=== PATIENT | female | born 1990 ===

== ENCOUNTER 2017-03-23 16:51 | Emergency (ER) | payer MEDICARE, OTHER ==
[2017-03-23 17:04] VITALS: BP 118/87; PULSE 78; RESP 18; TEMP 98.8; O2SAT 98
--- NOTE | 2017-03-23 18:26 | ED PDOC ---
HPI: Female Pain Time Seen by Provider: 03/23/17 17:51 Chief Complaint (Nursing): Female Genitourinary History Per: Patient Additional Complaint(s): 27 yo female presents to ED with complaint sof lower abdominal cramping and vaginal bleeding. Pt reports that her period started don Thursday; however, stopped, and then resumed on Thursday with heavy cramping. Pt concerned she might be . Pt has not done a test. Past Medical History Reviewed: Nursing Documentation, Vital Signs Vital Signs: Last Vital Signs Temp 98.8 F 03/23/17 17:02 Pulse 78 03/23/17 17:02 Resp 18 03/23/17 17:02 BP 118/87 03/23/17 17:02 Pulse Ox 98 03/23/17 17:02 - Medical History PMH: No Chronic Diseases - Surgical History Surgical History: No Surg Hx - Family History Family History: States: Unknown Family Hx - Living Arrangements Living Arrangements: With Family - Social History Current smoker - smoking cessation education provided: No Alcohol: None Drugs: Denies - Home Medications Home Medications: Ambulatory Orders Medication Instructions Recorded Multivitamin and [id number] 1 tab PO DAILY #100 tab 08/28/14 [] Ondansetron [Zofran] 4 mg PO Q8H PRN #30 tab 08/28/14 Oxymetazoline 0.05% [Afrin 0.05%] 2 spr NS Q12H #1 bottle 11/11/15 Cyclobenzaprine [Cyclobenzaprine 10 mg PO Q8 PRN #12 tab 04/12/16 HCl] Ibuprofen [Motrin] 600 mg PO TID PRN #30 tab 04/12/16 Cephalexin [cephalexin] 500 mg PO Q6 7 Days 07/25/16 DiphenhydrAMINE [Benadryl] 25 mg PO Q8H PRN 5 Days 07/25/16 predniSONE [predniSONE Tab] 20 mg PO BID 5 Days 07/25/16 Cephalexin [Keflex] 500 mg PO BID #14 cap 11/28/16 Phenazopyridine HCl [Pyridium] 100 mg PO TID #6 tab 03/23/17 Sulfamethoxazole/Trimethoprim 1 tab PO BID 14 Days 03/23/17 [Bactrim DS 800 mg-160 mg] - Allergies Allergies/Adverse Reactions: Allergies Allergy/AdvReac Type Severity Reaction Status Date / Time No Known Allergies Allergy Verified 03/23/17 17:02 Review of Systems ROS Statement: Except As Marked, All Systems Reviewed And Found Negative Gastrointestinal: Positive for: Abdominal Pain Genitourinary Female: Positive for: Vaginal Bleeding Physical Exam - Reviewed Nursing Documentation Reviewed: Yes Vital Signs Reviewed: Yes - Physical Exam Appears: Positive for: Well, Non-toxic, No Acute Distress Head Exam: Positive for: ATRAUMATIC, NORMAL INSPECTION, NORMOCEPHALIC Skin: Positive for: Normal Color, Warm, DRY Eye Exam: Positive for: EOMI, Normal appearance, PERRL ENT: Positive for: Normal ENT Inspection Neck: Positive for: Normal, Painless ROM Cardiovascular/Chest: Positive for: Regular Rate, Rhythm Respiratory: Positive for: CNT, Normal Breath Sounds Gastrointestinal/Abdominal: Positive for: Normal Exam, Bowel Sounds, Soft Back: Positive for: Normal Inspection Extremity: Positive for: Normal ROM Neurologic/Psych: Positive for: Alert, Oriented - Laboratory Results Result Diagrams: 03/23/17 18:05 - ECG O2 Sat by Pulse Oximetry: 98 Medical Decision Making Medical Decision Making: preg (-) Beta (-) Large blood and leuks on UA Pt started on Bactrim for UTI Instructed on results and demonstrated full understanding Disposition - Clinical Impression Clinical Impression: Urinary tract infection - Patient ED Disposition Is Patient to be Admitted: No - Disposition Disposition: Routine/Home Disposition Time: 19:41 Condition: STABLE Prescriptions: Phenazopyridine HCl [Pyridium] 100 mg PO TID #6 tab Sulfamethoxazole/Trimethoprim [Bactrim DS 800 mg-160 mg] 1 tab PO BID 14 Days Instructions: Urinary Tract Infection in Women (GEN) - POA Present On Arrival: None
[2017-03-23 18:47] LABS: BASO # 0.1 K/uL (0.0-0.2); BASO % 0.7 % (0.0-2.0); EOS % 0.3 % (0.0-4.0); HEMATOCRIT 39.5 % (34.0-47.0); LYMPH # 2.1 K/uL (1.0-4.3); LYMPH % 21.9 % (20.0-40.0); MEAN CELL VOLUME 90.6 fl (81.0-99.0); MEAN CORPUSCULAR HEMOGLOBIN 30.2 pg (27.0-31.0); MEAN CORPUSCULAR HGB CONC 33.3 g/dL (33.0-37.0); MEAN PLATELET VOLUME 9.1 fl (7.2-11.7); MONO # 0.7 K/uL (0.0-0.8); MONO % 7.6 % (0.0-10.0); NEUT # 6.5 K/uL (1.8-7.0); NEUT % 69.5 % (50.0-75.0); RED CELL DISTRIBUTION WIDTH 13.6 % (11.5-14.5); WHITE BLOOD COUNT 9.4 K/uL (4.8-10.8)
[2017-03-23 19:26] LABS: RBC URINE 33 /hpf (0-3); URINE BACTERIA OCC (<OCC); URINE BILIRUBIN NEGATIVE (NEGATIVE); URINE BLOOD LARGE (NEGATIVE); URINE COLOR AMBER (YELLOW); URINE GLUCOSE (UA) NEG (Normal); URINE KETONE NEGATIVE (NEGATIVE); URINE LEUKOCYTE ESTERASE MOD Leu/uL (Negative); URINE PROTEIN 100 mg/dL (NEGATIVE); URINE UROBILINOGEN 0.2-1.0 mg/dL (0.2-1.0); WBC URINE 65 /hpf (0-5)
== END 2017-03-23 19:42 | disposition home or self-care (01) ==
LOC: H.ER 16:51
DX: N39.0 Urinary tract infection, site not specified (principal); R10.9 Unspecified abdominal pain
CPT/HCPCS: 81003; 81025; 84702; 85025; 96372; 99283; J1885

== ENCOUNTER 2017-07-13 14:07 | Emergency (ER) | payer MEDICARE, OTHER ==
[2017-07-13 14:24] VITALS: BP 99/69; PULSE 82; RESP 16; TEMP 98.2; O2SAT 99
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
--- NOTE | 2017-07-13 15:37 | RAD ---
PROCEDURE: Left Ankle Radiographs. HISTORY: trauma COMPARISON: Comparison made with concurrent radiographs of the left foot 07/13/2017 FINDINGS: BONES: Normal. No fracture. JOINTS: Ankle mortise maintained. The slight spurring seen along the at inferior tip of the medial malleolus and possibly inferior tip of the lateral malleolus SOFT TISSUES: Questionable minimal lateral soft tissue swelling OTHER FINDINGS: None. IMPRESSION: Normal left ankle radiographNo evidence of acute displaced fracture nor dislocation. Mild tibiotalar DJD. . If symptoms persist or occult fracture suspected clinically recommend repeat radiographs in 5-10 days as most fractures should become radiographically evident in this timeframe.s.
--- NOTE | 2017-07-13 15:41 | RAD ---
PROCEDURE: Left Foot Radiographs. HISTORY: trauma COMPARISON: Correlation made with concurrent radiographs of the left ankle FINDINGS: BONES: No evidence of acute displaced fracture nor dislocation. Tiny posterior calcaneal enthesophyte present. JOINTS: Normal. SOFT TISSUES: Normal. OTHER FINDINGS: None. IMPRESSION: No evidence of acute displaced fracture or dislocation. If symptoms persist or occult fracture suspected clinically recommend repeat radiographs in 5-10 days as most fractures should become radiographically evident in this timeframe. S.
== END 2017-07-13 16:14 | disposition home or self-care (01) ==
LOC: H.ER 14:07
DX: S90.122A Contusion of left lesser toe(s) without damage to nail, initial encounter (principal); S90.511A Abrasion, right ankle, initial encounter; W19.XXXA Unspecified fall, initial encounter; Y92.89 Other specified places as the place of occurrence of the external cause

== ENCOUNTER 2017-12-25 00:28 | Emergency (ER) | payer MEDICARE, OTHER ==
[2017-12-25 00:49] VITALS: TEMP 98.6
[2017-12-25 01:38] LABS: BARBITURATES, UR NEGATIVE (NEGATIVE); BENZODIAZEPINES, UR NEGATIVE (NEGATIVE); OPIATES, UR NEGATIVE (NEGATIVE); PHENCYCLIDINE, UR NEGATIVE (NEGATIVE)
[2017-12-25 02:08] VITALS: PULSE 88; RESP 15; O2SAT 96
[2017-12-25 02:26] VITALS: BP 136/77
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
== END 2017-12-25 03:30 | disposition home or self-care (01) ==
LOC: H.ER 00:28
DX: F41.9 Anxiety disorder, unspecified (principal)
CPT/HCPCS: 99284; G0480

== ENCOUNTER 2018-01-04 03:59 | Emergency (ER) | payer MEDICARE, OTHER ==
[2018-01-04 04:25] VITALS: BP 130/83; PULSE 73; RESP 16; TEMP 97.7; O2SAT 99
--- NOTE | 2018-01-04 04:43 | ED PDOC ---
HPI: General Adult Time Seen by Provider: 01/04/18 04:19 Chief Complaint (Nursing): Anxiety History Per: Patient Additional Complaint(s): Pt. states earlier this evening she had a cigarette and shortly after she began to feel anxious. Describes feeling as having chest tightness and palpitations. States she took a cold shower and felt better afterwards but wanted to get checked out regardless. States she's same symptoms in the past which was attributed anxiety and she was placed on meds. Pt. states she does not like to be on medications as she does not like how it makes her feel. Currently without any symptoms. Denies SI/HI, hallucinations, hemoptysis, hx of DVT or PE, leg pain. Past Medical History Reviewed: Historical Data, Nursing Documentation, Vital Signs Vital Signs: Last Vital Signs Temp 97.7 F 01/04/18 04:22 Pulse 73 01/04/18 04:22 Resp 16 01/04/18 04:22 BP 130/83 01/04/18 04:22 Pulse Ox 99 01/04/18 05:26 - Medical History PMH: Anxiety - Family History Family History: States: No Known Family Hx - Home Medications Home Medications: Ambulatory Orders Medication Instructions Recorded Multivitamin and [id number] 1 tab PO DAILY #100 tab 08/28/14 [] Ondansetron [Zofran] 4 mg PO Q8H PRN #30 tab 08/28/14 Oxymetazoline 0.05% [Afrin 0.05%] 2 spr NS Q12H #1 bottle 11/11/15 Cyclobenzaprine [Cyclobenzaprine 10 mg PO Q8 PRN #12 tab 04/12/16 HCl] Ibuprofen [Motrin] 600 mg PO TID PRN #30 tab 04/12/16 Cephalexin [cephalexin] 500 mg PO Q6 7 Days cap 07/25/16 DiphenhydrAMINE [Benadryl] 25 mg PO Q8H PRN 5 Days cap 07/25/16 predniSONE [predniSONE Tab] 20 mg PO BID 5 Days tab 07/25/16 Cephalexin [Keflex] 500 mg PO BID #14 cap 11/28/16 Phenazopyridine HCl [Pyridium] 100 mg PO TID #6 tab 03/23/17 Sulfamethoxazole/Trimethoprim 1 tab PO BID 14 Days tab 03/23/17 [Bactrim DS 800 mg-160 mg] - Allergies Allergies/Adverse Reactions: Allergies Allergy/AdvReac Type Severity Reaction Status Date / Time No Known Allergies Allergy Verified 12/25/17 00:44 Review of Systems ROS Statement: Except As Marked, All Systems Reviewed And Found Negative Cardiovascular: Positive for: Chest Pain Psych: Positive for: Anxiety Physical Exam - Physical Exam Appears: Positive for: Well, Non-toxic, No Acute Distress Skin: Positive for: Normal Color, Warm. Negative for: Rash Eye Exam: Positive for: Normal appearance Cardiovascular/Chest: Positive for: Regular Rate, Rhythm Respiratory: Positive for: CNT, Normal Breath Sounds Gastrointestinal/Abdominal: Positive for: Normal Exam, Soft. Negative for: Tenderness Back: Positive for: Normal Inspection Extremity: Positive for: Normal ROM Neurologic/Psych: Positive for: Alert, Oriented, Mood/Affect (calm, cooperative) - ECG O2 Sat by Pulse Oximetry: 99 - Progress ED Course And Treament: Pt. evaluated by crisis and cleared pt. for discharge. Disposition - Clinical Impression Clinical Impression: Anxiety - Patient ED Disposition Is Patient to be Admitted: No - Disposition Disposition: Routine/Home Disposition Time: 05:44 Condition: STABLE Instructions: Anxiety, Adult (DC) Forms: [facility] (Cape Verdean)
--- NOTE | 2018-01-04 19:09 | CARD ---
APPROVED REPORT EKG Measurement Heart [id number] HI [id number] <Conclusion> Normal sinus rhythm Normal ECG
== END 2018-01-04 06:07 | disposition home or self-care (01) ==
LOC: H.ER 03:59
DX: F41.9 Anxiety disorder, unspecified (principal)

== ENCOUNTER 2018-07-23 16:39 | Emergency (ER) | payer MEDICARE, OTHER ==
--- NOTE | 2018-07-23 16:49 | ED PDOC ---
HPI: Psych/Substance Abuse Time Seen by Provider: 07/23/18 16:48 Chief Complaint (Provider): anxiety History Per: Patient Additional Complaint(s): 28-year-old female presents to emergency department with acute anxiety. Patient states that she smoked marijuana earlier and became anxious shortly after. She has a history of anxiety and states that she never felt this anxious before. She has a heartburn sensation to her chest upon arrival. She denies use of any other drugs. Patient denies suicidal or homicidal ideation. PMD: none Past Medical History Reviewed: Historical Data, Nursing Documentation, Vital Signs - Medical History PMH: Anxiety - Family History Family History: States: No Known Family Hx - Living Arrangements Living Arrangements: With Family - Social History Current smoker - smoking cessation education provided: Yes Alcohol: Social Drugs: Cannabis - Home Medications Home Medications: Ambulatory Orders Medication Instructions Recorded Multivitamin and [id number] 1 tab PO DAILY #100 tab 08/28/14 [] Ondansetron [Zofran] 4 mg PO Q8H PRN #30 tab 08/28/14 Oxymetazoline 0.05% [Afrin 0.05%] 2 spr NS Q12H #1 bottle 11/11/15 Cyclobenzaprine [Cyclobenzaprine 10 mg PO Q8 PRN #12 tab 04/12/16 HCl] Ibuprofen [Motrin] 600 mg PO TID PRN #30 tab 04/12/16 Cephalexin [cephalexin] 500 mg PO Q6 7 Days cap 07/25/16 DiphenhydrAMINE [Benadryl] 25 mg PO Q8H PRN 5 Days cap 07/25/16 predniSONE [predniSONE Tab] 20 mg PO BID 5 Days tab 07/25/16 Cephalexin [Keflex] 500 mg PO BID #14 cap 11/28/16 Phenazopyridine HCl [Pyridium] 100 mg PO TID #6 tab 03/23/17 Sulfamethoxazole/Trimethoprim 1 tab PO BID 14 Days tab 03/23/17 [Bactrim DS 800 mg-160 mg] - Allergies Allergies/Adverse Reactions: Allergies Allergy/AdvReac Type Severity Reaction Status Date / Time No Known Allergies Allergy Verified 07/23/18 16:49 Review of Systems ROS Statement: Except As Marked, All Systems Reviewed And Found Negative Constitutional: Negative for: Fever Cardiovascular: Positive for: Chest Pain Respiratory: Negative for: Cough Gastrointestinal: Negative for: Nausea, Vomiting Psych: Positive for: Anxiety. Negative for: Suicidal ideation Physical Exam - Reviewed Nursing Documentation Reviewed: Yes Vital Signs Reviewed: Yes - Physical Exam Appears: Positive for: Well, Non-toxic, No Acute Distress Skin: Positive for: Normal Color. Negative for: Rash Eye Exam: Positive for: Normal appearance Cardiovascular/Chest: Positive for: Regular Rate, Rhythm Respiratory: Positive for: Normal Breath Sounds. Negative for: Wheezing, Respiratory Distress Extremity: Positive for: Normal ROM Neurologic/Psych: Positive for: Alert, Oriented - ECG Interpretation Of ECG: Sinus bradycardia 57 bpm, no acute changes, reviewed by PA and ED attending O2 Sat by Pulse Oximetry: 100 Pulse Ox Interpretation: Normal Medical Decision Making Medical Decision Makin28 y/o female with anxiety Plan: test PO xanax 0.25 mg EKG Patient was offered crisis consultation but she declined. She denies suicidal or homicidal ideation. Patient reports improvement in symptoms after Xanax dose was given. She is stable for discharge. She was advised to follow up with clinic or primary care doctor. Disposition - Clinical Impression Clinical Impression: Marijuana use, Anxiety - Patient ED Disposition Is Patient to be Admitted: No Counseled Patient/Family Regarding: Diagnosis, Need For Followup - Disposition Referrals: [facility] [Outside] Disposition: Routine/Home Disposition Time: 18:41 Condition: STABLE Additional Instructions: Follow up with primary care doctor. Instructions: Anxiety, Adult (DC), Drug Abuse and Drug Addiction (DC), Drug Abuse Treatment Forms: [employer] (Tanzanian)
[2018-07-23 16:53] VITALS: BP 120/76; PULSE 76; RESP 18; TEMP 99; O2SAT 100
--- NOTE | 2018-07-24 17:32 | CARD ---
APPROVED REPORT Date of service: 07/23/2018 <Conclusion> Sinus bradycardia Otherwise normal ECG
== END 2018-07-23 18:48 | disposition home or self-care (01) ==
LOC: H.ER 16:39
DX: F41.9 Anxiety disorder, unspecified (principal); F12.90 Cannabis use, unspecified, uncomplicated

== ENCOUNTER 2018-11-05 23:25 | Emergency (ER) | payer MEDICARE, OTHER ==
[2018-11-05 23:35] VITALS: BP 125/90; PULSE 92; RESP 20; TEMP 97.8; O2SAT 100
[2018-11-06] MEDS ORDERED: Sodium Chloride 0.9% 1,000 ML IV STA (00:45)
--- NOTE | 2018-11-06 01:01 | ED PDOC ---
HPI: Abdomen Time Seen by Provider: 11/06/18 00:30 Chief Complaint (Nursing): Abdominal Pain Chief Complaint (Provider): abdominal pain, diarrhea History Per: Patient History/Exam Limitations: no limitations Onset/Duration Of Symptoms: Days (2) Current Symptoms Are (Timing): Still Present Location Of Pain/Discomfort: Diffuse Quality Of Discomfort: Cramping Associated Symptoms: Nausea Additional Complaint(s): 28 y/o female presents for evaluation of multiple episodes of diarrhea x 2 days. Associated abdominal cramping, nausea. Denies fever, vomiting, cough, congestion, chest pain, shortness of breath, urinary symptoms, recent travel, sick contacts. Past Medical History Reviewed: Historical Data, Nursing Documentation, Vital Signs Vital Signs: Last Vital Signs Temp 97.8 F 11/05/18 23:32 Pulse 92 H 11/05/18 23:32 Resp 20 11/05/18 23:32 BP 125/90 11/05/18 23:32 Pulse Ox 100 11/05/18 23:32 - Medical History PMH: Anxiety Denies: Diabetes, Hepatitis, HIV, HTN, Seizures, Sexually Transmitted Disease - Surgical History Surgical History: No Surg Hx - Family History Family History: States: Unknown Family Hx - Living Arrangements Living Arrangements: Alone - Home Medications Home Medications: Ambulatory Orders Medication Instructions Recorded Multivitamin and [id number] 1 tab PO DAILY #100 tab 08/28/14 [] Ondansetron [Zofran] 4 mg PO Q8H PRN #30 tab 08/28/14 Oxymetazoline 0.05% [Afrin 0.05%] 2 spr NS Q12H #1 bottle 11/11/15 Cyclobenzaprine [Cyclobenzaprine 10 mg PO Q8 PRN #12 tab 04/12/16 HCl] Ibuprofen [Motrin] 600 mg PO TID PRN #30 tab 04/12/16 Cephalexin [cephalexin] 500 mg PO Q6 7 Days cap 07/25/16 DiphenhydrAMINE [Benadryl] 25 mg PO Q8H PRN 5 Days cap 07/25/16 predniSONE [predniSONE Tab] 20 mg PO BID 5 Days tab 07/25/16 Cephalexin [Keflex] 500 mg PO BID #14 cap 11/28/16 Phenazopyridine HCl [Pyridium] 100 mg PO TID #6 tab 03/23/17 Sulfamethoxazole/Trimethoprim 1 tab PO BID 14 Days tab 03/23/17 [Bactrim DS 800 mg-160 mg] Dicyclomine [Bentyl] 20 mg PO TID PRN #15 tab 11/06/18 Ondansetron ODT [Zofran ODT] 4 mg PO Q8 PRN #10 odt 11/06/18 - Allergies Allergies/Adverse Reactions: Allergies Allergy/AdvReac Type Severity Reaction Status Date / Time No Known Allergies Allergy Verified 11/05/18 23:32 Review of Systems ROS Statement: Except As Marked, All Systems Reviewed And Found Negative Gastrointestinal: Positive for: Nausea, Abdominal Pain, Diarrhea Physical Exam - Reviewed Nursing Documentation Reviewed: Yes Vital Signs Reviewed: Yes - Physical Exam Appears: Positive for: Well, Non-toxic, No Acute Distress Head Exam: Positive for: ATRAUMATIC, NORMAL INSPECTION, NORMOCEPHALIC Skin: Positive for: Normal Color Eye Exam: Positive for: Normal appearance ENT: Positive for: Normal ENT Inspection Cardiovascular/Chest: Positive for: Regular Rate, Rhythm Respiratory: Positive for: Normal Breath Sounds Gastrointestinal/Abdominal: Positive for: Normal Exam, Bowel Sounds, Soft. Negative for: Tenderness Back: Positive for: Normal Inspection Extremity: Positive for: Normal ROM Neurologic/Psych: Positive for: Alert, Oriented (x3) - Laboratory Results Result Diagrams: 11/06/18 01:18 11/06/18 01:18 - ECG O2 Sat by Pulse Oximetry: 100 - Progress ED Course And Treament: -cbc -cmp -lipase -urinalysis -urine c&s -IV NS bolus -PO bentyl On re-eval, patient sleeping; upon awakening states pain improved and she would like to be discharged. Tolerating PO Patient educated on findings, discharged with rx Zofran, Bentyl. Advised follow up PMD within 2-3 days Fluids. [place] diet Return precautions given Disposition - Clinical Impression Clinical Impression: Gastroenteritis - Patient ED Disposition Is Patient to be Admitted: No Counseled Patient/Family Regarding: Studies Performed, Diagnosis, Need For Followup, Rx Given - Disposition Disposition: Routine/Home Disposition Time: 03:27 Condition: IMPROVED Prescriptions: Dicyclomine [Bentyl] 20 mg PO TID PRN #15 tab PRN Reason: Pain, Mild (1-3) Ondansetron ODT [Zofran ODT] 4 mg PO Q8 PRN #10 odt PRN Reason: Nausea/Vomiting Instructions: Gastroenteritis (ED) Forms: [employer] (Bhutanese)
[2018-11-06 01:48] LABS: BASO # 0.1 K/uL (0.0-0.2); BASO % 0.4 % (0.0-2.0); EOS # 0.1 K/uL (0.0-0.7); EOS % 0.6 % (0.0-4.0); LYMPH # 1.8 K/uL (1.0-4.3); MEAN CELL VOLUME 91.6 fl (81.0-99.0); MEAN CORPUSCULAR HEMOGLOBIN 30.5 pg (27.0-31.0); MEAN CORPUSCULAR HGB CONC 33.4 g/dL (33.0-37.0); MEAN PLATELET VOLUME 8.6 fl (7.2-11.7); MONO # 0.7 K/uL (0.0-0.8); MONO % 5.4 % (0.0-10.0); NEUT % 79.6 % (50.0-75.0); RBC 4.26 Mil/uL (3.80-5.20); WHITE BLOOD COUNT 12.6 K/uL (4.8-10.8)
[2018-11-06 01:56] LABS: SQUAMOUS EPITHIAL 25 /hpf (0-5); URINE BACTERIA RARE (<OCC); URINE BILIRUBIN NEGATIVE (NEGATIVE); URINE BLOOD SMALL (NEGATIVE); URINE CLARITY CLOUDY (Clear); URINE COLOR YELLOW (YELLOW); URINE GLUCOSE (UA) NEG (NEGATIVE); URINE LEUKOCYTE ESTERASE SMALL Leu/uL (Negative); URINE PROTEIN 30 mg/dL (NEGATIVE); URINE UROBILINOGEN 0.2-1.0 mg/dL (0.2-1.0)
[2018-11-06 02:06] LABS: ALB/GLOB RATIO 1.4 (1.0-2.1); ALBUMIN 4.3 g/dL (3.5-5.0); ALT/SGPT 22 U/L (9-52); AST/SGOT 28 U/L (14-36); BLOOD UREA NITROGEN 15 mg/dl (7-17); CALCIUM 9.5 mg/dL (8.4-10.2); GFR NON-AFRICAN AMERICAN > 60; LIPASE 35 U/L (23-300)
== END 2018-11-06 03:35 | disposition home or self-care (01) ==
LOC: H.ER 23:25
DX: K52.9 Noninfective gastroenteritis and colitis, unspecified (principal)
CPT/HCPCS: 80053; 81003; 81025; 83690; 85025; 87086; 96360; 99283; J2405; J7030

== ENCOUNTER 2019-01-27 10:13 | Emergency (ER) | payer OTHER, MEDICARE ==
[2019-01-27 10:17] VITALS: BMI 36.9
[2019-01-27 10:18] VITALS: RESP 18; TEMP 98.8; O2SAT 99
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
[2019-01-27 13:51] VITALS: BP 124/76; PULSE 88
== END 2019-01-27 13:32 | disposition home or self-care (01) ==
LOC: H.ER 10:13
DX: S80.12XA Contusion of left lower leg, initial encounter (principal); V13.4XXA Pedal cycle driver injured in collision with car, pick-up truck or van in traffic accident, initial encounter; Y92.410 Unspecified street and highway as the place of occurrence of the external cause

== ENCOUNTER 2019-02-01 12:24 | Emergency (ER) | payer MEDICARE, OTHER ==
[2019-02-01 12:24] VITALS: BMI 36.9
[2019-02-01] MEDS ORDERED: Naproxen 500 MG TAB PO STA (12:42)
[2019-02-01] MEDS ORDERED: cefTRIAXone (Rocephin) 250 mg Inj IM ONE (12:42)
[2019-02-01] MEDS ORDERED: Naproxen 500 MG TAB PO ONE (12:59)
[2019-02-01] MEDS ORDERED: cefTRIAXone (Rocephin) 250 mg Inj ONE (13:00)
[2019-02-01] MEDS ORDERED: Sterile Water 10 ML IV ONE (13:01)
--- NOTE | 2019-02-01 13:09 | ED PDOC ---
HPI: Female Pain Time Seen by Provider: 02/01/19 12:30 Chief Complaint (Nursing): Abdominal Pain Chief Complaint (Provider): Urinary symptoms History Per: Patient History/Exam Limitations: no limitations Onset/Duration Of Symptoms: Days Current Symptoms Are (Timing): Still Present Associated Symptoms: Urinary Symptoms Additional History Per: Patient Additional Complaint(s): 28yo female, comes in with 3 days of urinary frequency and burning, as well as mild suprapubic pain upon urination. Patient states she thought her symptoms were due to a UTI but states she has never had it before. She additionally states she is sexually active, did not use a condom the last time and is concerned regarding STI; patient deneis any abnormal vaginal discharge. Pt reports feeling a little nauseous but has been eating and drinking well with no vomiting. She also reports she had a hard bowel movement this morning, and felt a "bump" in her rectum, states she is concerned she has a hemorrhoid. She states her bowel movements are usually hard and that she has had hemorrhoids in the past; denies any blood or pain. No additional complaints. LMP: 01/16/19 PMd: Clinic Abnormal Vaginal Bleeding: No Past Medical History Reviewed: Historical Data, Nursing Documentation, Vital Signs Vital Signs: Last Vital Signs Temp 97.2 F L 02/01/19 12:28 Pulse 78 02/01/19 12:28 Resp 18 02/01/19 12:28 BP 128/83 02/01/19 12:28 Pulse Ox 98 02/01/19 12:28 - Medical History PMH: Anxiety Denies: Diabetes, Hepatitis, HIV, HTN, Seizures, Sexually Transmitted Disease - Surgical History Surgical History: No Surg Hx - Family History Family History: States: Unknown Family Hx - Social History Current smoker - smoking cessation education provided: Yes Alcohol: Occasional Drugs: Cannabis - Home Medications Home Medications: Ambulatory Orders Medication Instructions Recorded Multivitamin and [id number] 1 tab PO DAILY #100 tab 08/28/14 [] Ondansetron [Zofran] 4 mg PO Q8H PRN #30 tab 08/28/14 Oxymetazoline 0.05% [Afrin 0.05%] 2 spr NS Q12H #1 bottle 11/11/15 Cyclobenzaprine [Cyclobenzaprine 10 mg PO Q8 PRN #12 tab 06/04/16 HCl] Ibuprofen [Motrin] 600 mg PO TID PRN #30 tab 04/12/16 Cephalexin [cephalexin] 500 mg PO Q6 7 Days cap 07/25/16 DiphenhydrAMINE [Benadryl] 25 mg PO Q8H PRN 5 Days cap 07/25/16 predniSONE [predniSONE Tab] 20 mg PO BID 5 Days tab 07/25/16 Cephalexin [Keflex] 500 mg PO BID #14 cap 11/28/16 Phenazopyridine HCl [Pyridium] 100 mg PO TID #6 tab 03/23/17 Sulfamethoxazole/Trimethoprim 1 tab PO BID 14 Days tab 03/23/17 [Bactrim DS 800 mg-160 mg] Dicyclomine [Bentyl] 20 mg PO TID PRN #15 tab 11/06/18 Ondansetron ODT [Zofran ODT] 4 mg PO Q8 PRN #10 odt 11/06/18 Ibuprofen [Motrin Tab] 600 mg PO Q6 PRN #15 tab 01/27/19 Naproxen 500 mg PO BID PRN #20 tab 02/01/19 Nitrofurantoin Macrocrystals 100 mg PO BID #14 cap 02/01/19 [Macrobid] Ondansetron ODT [Zofran ODT] 4 mg PO TID PRN #8 odt 02/01/19 - Allergies Allergies/Adverse Reactions: Allergies Allergy/AdvReac Type Severity Reaction Status Date / Time No Known Allergies Allergy Verified 11/05/18 23:32 Review of Systems ROS Statement: Except As Marked, All Systems Reviewed And Found Negative Constitutional: Negative for: Fever, Chills Gastrointestinal: Positive for: Nausea, Abdominal Pain (suprapubic). Negative for: Vomiting Genitourinary Female: Positive for: Dysuria, Frequency. Negative for: Vaginal Discharge Musculoskeletal: Negative for: Back Pain Physical Exam - Reviewed Nursing Documentation Reviewed: Yes Vital Signs Reviewed: Yes - Physical Exam Appears: Positive for: No Acute Distress Head Exam: Positive for: ATRAUMATIC, NORMAL INSPECTION, NORMOCEPHALIC Skin: Positive for: Normal Color Eye Exam: Positive for: Normal appearance Neck: Positive for: Supple Cardiovascular/Chest: Positive for: Regular Rate, Rhythm. Negative for: Tachycardia Respiratory: Positive for: Normal Breath Sounds. Negative for: Respiratory Distress Gastrointestinal/Abdominal: Positive for: Normal Exam, Bowel Sounds (normal), Soft. Negative for: Tenderness, Organomegaly, Distended, Guarding, Rebound Back: Positive for: Normal Inspection. Negative for: L CVA Tenderness, R CVA Tenderness Rectal: Positive for: Hemorrhoids (+1 small non tender external hemorrhoid, no bleeding or signs of infection) Extremity: Positive for: Normal ROM Neurological/Psych: Positive for: Awake, Alert - ECG O2 Sat by Pulse Oximetry: 98 (RA) Pulse Ox Interpretation: Normal Medical Decision Making Medical Decision Makinyo female with sprapubic pain, dysuria Plan: -- Upreg -- Urinalysis -- Urine culture -- Chlamydia/GC RNA, TMA -- Zithromax 1000mg PO -- Rocephin 250mg IM -- Naproxen 500mg PO -- Zofran 4mg ODT 13:55 re eval pt is feeling better, reports pain is getting better, no longer nauseou s, abdomen continues to be soft and non tender, UA with UTI, will treat with macrobid pending culture Pt has appointment with PMD in 1 wk Discussed results, diagnosis, treatment,return precautions and f/u with pt who is understanding, in agreement and stable for dc Scribe Attestation: Documented by Joy Castillo, acting as a scribe for Grady Pineda PA-C Provider Scribe Attestation: All medical record entries made by the Scribe were at my direction and personally dictated by me. I have reviewed the chart and agree that the record accurately reflects my personal performance of the history, physical exam, medical decision making, and the department course for this patient. I have also personally directed, reviewed, and agree with the discharge instructions and disposition. Disposition - Clinical Impression Clinical Impression: Urinary tract infection, Hemorrhoid - Patient ED Disposition Is Patient to be Admitted: No Counseled Patient/Family Regarding: Studies Performed, Diagnosis, Need For Followup, Rx Given - Disposition Referrals: [facility] [Outside] Disposition: Routine/Home Disposition Time: 13:56 Condition: IMPROVED Additional Instructions: Return to ED for new or worsening symptoms, fever >100.4, vomiting, severe pain, back pain. Follow up with your primary doctor as scheduled. Take medications as prescribed. Take antibiotics until finished. Drink plenty of water and high fiber diet Prescriptions: Naproxen 500 mg PO BID PRN #20 tab PRN Reason: Pain, Moderate (4-7) Nitrofurantoin Macrocrystals [Macrobid] 100 mg PO BID #14 cap Ondansetron ODT [Zofran ODT] 4 mg PO TID PRN #8 odt PRN Reason: Nausea/Vomiting Instructions: Hemorrhoids (DC), Urinary Tract Infection, Adult (DC) Forms: [employer] (Croatian), [facility] ED School/Work Excuse Print Language: AR[place]ENT[place] - POA Present On Arrival: None Results - Lab Results Lab Results: 02/01/19 13:00 Urine Color Yellow Urine Clarity Slighty-cloudy Urine pH 6.0 Ur Specific [place] 1.021 Urine Protein Negative Urine Glucose (UA) Neg Urine Ketones Negative Urine Blood Negative Urine Nitrate Negative Urine Bilirubin Negative Urine Urobilinogen 0.2-1.0 Ur Leukocyte Esterase Mod Urine RBC (Auto) 6 H Urine Microscopic WBC 11 H Ur Squamous Epith Cells 6 H Urine Bacteria Rare
[2019-02-01 13:11] LABS: SQUAMOUS EPITHIAL 6 /hpf (0-5); URINE BACTERIA RARE (<OCC); URINE BILIRUBIN NEGATIVE (NEGATIVE); URINE BLOOD NEGATIVE (NEGATIVE); URINE CLARITY SLIGHTY-CLOUDY (Clear); URINE COLOR YELLOW (YELLOW); URINE GLUCOSE (UA) NEG (NEGATIVE); URINE LEUKOCYTE ESTERASE MOD Leu/uL (Negative); URINE PROTEIN NEGATIVE (NEGATIVE); URINE UROBILINOGEN 0.2-1.0 mg/dL (0.2-1.0)
[2019-02-01 14:21] VITALS: BP 119/69; PULSE 65; RESP 20; TEMP 98
[2019-02-01 15:59] VITALS: O2SAT 98
== END 2019-02-01 14:15 | disposition home or self-care (01) ==
LOC: H.ER 12:24
DX: N39.0 Urinary tract infection, site not specified (principal); K64.9 Unspecified hemorrhoids
CPT/HCPCS: 81003; 81025; 87086; 87491; 87591; 96372; 99283; J0696